=== PATIENT | male | born 1970 | race Caucasian/White ===

== ENCOUNTER 2025-03-07 16:24 | Emergency (ER) | payer BC, SELFPAY ==
--- NOTE | 2025-03-07 08:45 | ECG_ITS ---
Test Date: 2025-03-07 17:04:00 Measurements Intervals [place] Rate: 116 P: 55 IA: 160 QRS: -38 QRSD: 94 T: 68 QT: 324 QTc: 451 Interpretive Statements SINUS TACHYCARDIA LEFT AXIS DEVIATION LEFT ATRIAL ENLARGEMENT CANNOT R/O SEPTAL INFARCT, AGE INDETERMINATE MINIMAL Q WAVES- HIGH LATERAL LEADS ABNORMAL ECG No previous ECG available for comparison Electronically Signed On 03-08-2025 13:46:39 CDT by Franco Ron D.O.
[2025-03-07 16:26] VITALS: BP 214/100; PULSE 116; RESP 18; TEMP 37.3; O2SAT 97
--- NOTE | 2025-03-07 17:21 | ED_ITS ---
HPI - General Adult General Chief complaint: Recheck/Abnormal Lab/Rx Stated complaint: sent from for labs Time Seen by Provider: 03/07/25 17:06 History of Present Illness HPI narrative: This is a 54-year-old male history of hypertension presenting for a rash on his leg. Patient notes the rash 4-5 days ago. It is red painful and warm to touch. It is spreading. He has had subjective fever and chills at home was not take his temperature. Patient's hypertension is not sure if he is taking his blood pressure meds today. Related Data Home Medications ?Medication ?Instructions ?Recorded ?Confirmed ?Last Taken ?Type losartan 50 mg tablet 50 mg PO DAILY 03/07/25 03/07/25 Unknown History Allergies Allergy/AdvReac Type Severity Reaction Status Date / Time No Known Allergies Allergy Unknown Verified 03/07/25 16:29 [facility] Past Medical History Medical History (Updated 03/07/25 @ 17:45 by Israel Callejas MD) HTN (hypertension) Exam Narrative: APPEARANCE: No apparent distress. Head: atraumatic. EYES: EOMI, NOSE: Atraumatic NECK: Trachea midline RESPIRATORY: No increased rate of breathing, clear to auscultation CARDIOVASCULAR: Tachycardic, no peripheral edema ABDOMINAL: Non-distended MUSCULOSKELETAl: No obvious deformities NEURO: Alert. Moving 4/4 extremities SKIN: On the left anterior antonio he has a erythematous rash that is warm to touch, no blisters no crepitus PSYCHIATRIC: Normal affect Course Vital Signs Vital signs: Vital Signs Temperature 99.2 F 03/07/25 16:26 Pulse Rate 116 H 03/07/25 16:26 Respiratory Rate 18 03/07/25 16:26 Blood Pressure 214/100 H 03/07/25 16:26 Pulse Oximetry 97 03/07/25 16:26 Oxygen Delivery Room Air 03/07/25 16:26 Temperature 99.2 F 03/07/25 16:26 Pulse Rate 116 H 03/07/25 16:26 Respiratory Rate 18 03/07/25 16:26 Blood Pressure 214/100 H 03/07/25 16:26 Pulse Oximetry 97 03/07/25 16:26 Oxygen Delivery Room Air 03/07/25 16:26 Medical Decision Making [facility] Narrative Medical decision making narrative: -Course: 54-year-old male presenting with a warm painful rash to his left anterior antonio. Findings consistent with cellulitis. On arrival the patient was hypertensive and tachycardic although he had not taken his hypertension meds. 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 White count elevated at 12.8. Despite the elevated white count source infection the patient is very well appearing overall. We discussed admi ssion versus discharge and both myself and patient are comfortable with him going home on a course of oral antibiotics with strict return precautions. Patient given 2 g of Ancef for his cellulitis. He will be discharged on Keflex. Given return precautions and primary care follow-up. -DDX includes but is not limited to: Cellulitis, heat rash, abrasion Vital Signs Vital Signs: Vital Signs Temperature 99.2 F 03/07/25 16:26 Pulse Rate 116 H 03/07/25 16:26 Respiratory Rate 18 03/07/25 16:26 Blood Pressure 214/100 H 03/07/25 16:26 Pulse Oximetry 97 03/07/25 16:26 Oxygen Delivery Room Air 03/07/25 16:26 Temperature 99.2 F 03/07/25 16:26 Pulse Rate 116 H 03/07/25 16:26 Respiratory Rate 18 03/07/25 16:26 Blood Pressure 214/100 H 03/07/25 16:26 Pulse Oximetry 97 03/07/25 16:26 Oxygen Delivery Room Air 03/07/25 16:26 Discharge Plan Discharge Clinical Impression: Cellulitis Patient Disposition: Home Condition: Stable Instructions: Antibiotic Form, Cellulitis (ED) Additional Instructions: You were seen in the emergency department for rash on your antonio. I believe this is cellulitis. Please complete a course of antibiotics. Follow-up with your primary care physician in 3-5 days to ensure that your rash is improving. If you feel that you are getting worse, the rash continues to spread or you develop fevers higher than 101.4 I would like you to return to the emergency department for re-evaluation. Your blood pressures are elevated in ED. We gave you a dose of your home BP medication, please speak with your primary care physician in regards to your elevated blood pressures. Patient Language: Bhutanese Prescriptions: New cephalexin 500 mg capsule 500 mg PO Q6H 7 Days Qty: 28 0RF No Action losartan 50 mg tablet 50 mg PO DAILY Follow-up/Referrals: Homa Maravilla, RN [Emergency Nurse] - [place],Pierre Weeks MD [Primary Care Provider] - 1 Week (CEllulitis, HTN)
[2025-03-07 17:38] VITALS: BP 193/97; PULSE 99; RESP 18; TEMP 37.3; O2SAT 100
[2025-03-07 17:39] VITALS: O2SAT 100
[2025-03-07 17:46] LABS: Basophils Absolute Auto 0.1 K/mm3 (0.0-0.1); Basophils Percent Auto 0.4 % (0.2-1.2); Eosinophils Absolute Auto 0.1 K/mm3 (0-0.3); Eosinophils Percent Auto 0.4 % (0-4.4); Hematocrit 46.6 % (42.0-52.0); Hemoglobin 15.6 g/dL (14.0-18.0); Immature Granulocyte Absolute 0.05 K/mm3 (0.00-0.031); Immature Granulocyte Percent A 0.4 % (0-0.5); Lymphocytes Absolute Auto 0.99 K/mm3 (0.9-3.2); Lymphocytes Percent Auto 7.7 % (18.3-44.2); Mean Corpuscular HGB Conc 33.5 g/dl (32-36); Mean Corpuscular Hemoglobin 30.1 pg (26-34); Mean Platelet Volume 8.6 fl (7.4-10.4); Monocytes Absolute Auto 1.1 K/mm3 (0.1-0.6); Monocytes Percent Auto 8.2 % (2.6-8.5); Neutrophils Absolute Auto 10.6 K/mm3 (1.3-6.7); Neutrophils Percent Auto 82.9 % (45.5-73.1); Platelet Count Result 254 k/mm3 (150-375); Red Blood Count 5.18 M/mm3 (4.6-6.20); Red Cell Distribution Width 13.1 % (11.5-14.5); White Blood Count 12.8 K/mm3 (4.5-10.0)
[2025-03-07 17:53] LABS: Alanine Aminotransferase 17 U/L (6-50); Albumin Level 4.7 g/dL (3.5-5.1); Alkaline Phosphatase 110 U/L (38-126); Anion Gap 13 mmol/L (4-12); Aspartate Amino Transferase 26 U/L (17-59); Bilirubin,Total 0.5 mg/dL (0.2-1.3); Blood Urea Nitrogen 13 mg/dL (9-20); Calcium 8.9 mg/dL (8.4-10.2); Carbon Dioxide 23 mmol/L (22-30); Chloride 105 mmol/L (98-107); Estimated CRCL calculation 81 ml/min; Estimated Glomerular Filt Rate > 60; Glucose 104 mg/dL (65-110); Potassium 3.6 mmol/L (3.4-5.0); Sodium 141 mmol/L (137-145); Total Protein 8.6 g/dL (6.3-8.2)
[2025-03-07] MEDS: LACTATED RINGERS 2,000 ML 999 ML IV CONT (17:55)
[2025-03-07] MEDS: ceFAZolin 2 GM/D5W 50 ML 2 GM/50 ML BAG IVPB (19:19)
== END 2025-03-07 20:15 | disposition home or self-care (01) ==
PROVIDERS: Emergency Provider Emergency Medicine; PCP Internal Medicine
DX: L03.116 Cellulitis of left lower limb (principal); I10 Essential (primary) hypertension; R00.0 Tachycardia, unspecified; R94.31 Abnormal electrocardiogram [ECG] [EKG]
CPT/HCPCS: 36415; 80053; 85025; 93005; 96361; 96365; 99284; J0690; J7120

== ENCOUNTER 2025-08-10 16:48 | Emergency (ER) | payer BC, SELFPAY ==
[2025-08-10 17:29] VITALS: BP 184/100; PULSE 110; RESP 16; TEMP 36.6; O2SAT 98
[2025-08-10 20:31] VITALS: BP 172/108; PULSE 104; RESP 14; TEMP 36.7; O2SAT 97
--- NOTE | 2025-08-10 21:12 | ED.EXTPRO ---
HPI - Extremity Problem General Chief complaint: Extremity Problem,Nontraumatic Stated complaint: left leg redness Time Seen by Provider: 08/10/25 20:37 Source: patient Mode of arrival: ambulatory Limitations: no limitations History of Present Illness HPI Narrative: This is a 55 year old male that presents to the ER for a rash on the left leg. Noted today. Reports he had a fever earlier. Took an anti-inflammatory at home. Reports history of cellulitis. Related Data Home Medications ?Medication ?Instructions ?Recorded ?Confirmed ?Last Taken ?Type losartan 50 mg tablet 50 mg PO DAILY 03/07/25 03/07/25 Unknown History Allergies Allergy/AdvReac Type Severity Reaction Status Date / Time No Known Allergies Allergy Unknown Verified 08/10/25 17:33 Review of Systems Review of Systems: All systems reviewed & are unremarkable except as noted in HPI and below PMFSH Past Medical History Medical History (Updated 08/10/25 @ 21:14 by Carrie Car PA-C) HTN (hypertension) Exam Narrative: GENERAL: Well-appearing, well-nourished, and in no acute distress. HEAD: Normocephalic, atraumatic. EYES: EOMI. CHEST: No respiratory distress. HEART: Regular rate EXTREMITIES: Normal range of motion. No edema. Patchy areas of redness to the left antonio and left inner thigh SKIN: Warm, dry, no rash. NEURO: No focal deficits. Alert and oriented x3. PSYCH: Normal mood and affect Course Vital Signs Vital signs: Vital Signs Temperature 98 F 08/10/25 17:29 Pulse Rate 110 H 08/10/25 17:29 Respiratory Rate 16 08/10/25 17:29 Blood Pressure 184/100 H 08/10/25 17:29 Pulse Oximetry 98 08/10/25 17:29 Oxygen Delivery Room Air 08/10/25 17:29 Temperature 98.1 F 08/10/25 20:31 Pulse Rate 104 H 08/10/25 20:31 Respiratory Rate 14 08/10/25 20:31 Blood Pressure 172/108 H 08/10/25 20:31 Pulse Oximetry 97 08/10/25 20:31 Oxygen Delivery Room Air 08/10/25 17:29 MDM MDM Narrative Medical decision making narrative: Patient presents the emergency department for a rash to the left lower extremity. He is afebrile and nontoxic appearing. Tachycardic upon arrival, this down trended without intervention. Patchy redness noted to the left lower extremity. Reports history of a similar episode earlier this year for which he was treated with an antibiotic with relief. Will trial a round of Keflex again. I am also going to start him on Valtrex as I do have some suspicion for shingles. He was instructed he should follow up with a water treatment technician Differential Diagnosis Differential Diagnosis: shingles, cellulitis Medical Records I have reviewed the following patient records and this information was taken into consideration when formulating the assessment and plan.: previous labs and previous ER visits Critical Care Time Critical Care Time Critical Care Time: No Discharge Plan Discharge Clinical Impression: Rash and nonspecific skin eruption Patient Disposition: Home Condition: Stable Instructions: Antibiotic Form, Shingles (ED), Cellulitis (ED) Additional Instructions: Return to the emergency department if you experience fever >101, increasing redness and swelling of your leg, weakness, numbness or any other symptoms that are concerning to you Take Cephalexin and Valacyclovir as prescribed Follow-up with primary care doctor. I would also have follow up with a Manager Scheduling Patient Language: Greenlandic Prescriptions: New cephalexin 500 mg capsule 500 mg PO Q6H 7 Days Qty: 28 0RF valacyclovir 1 gram tablet 1,000 mg PO Q8H 7 Days Qty: 21 0RF No Action losartan 50 mg tablet 50 mg PO DAILY cephalexin 500 mg capsule 500 mg PO Q6H 7 Days Qty: 28 0RF Follow-up/Referrals: Gilles,Pierre Weeks MD [Primary Care Provider]
--- OUTSIDE RECORDS SUMMARY | 2025-08-10 21:23 | XMS_ITS | Clinical Summary ---
Author Organization [facility] Address [address] [place] [id number] Care Team Providers Care Senior Windows Engineer Name Role Phone Unknown, Notinfile Primary Care Provider Unavail able Allergies No known active allergies Medications losartan (COZAAR) 50 mg tablet Take 1 tablet (50 mg total) by mouth daily 02/18/2025 Active Active Problems No known active problems Social History Tobacco Use Types Packs/Day Years Used Date Smoking Tobacco: Never Assessed Sex and Gender Information Value Date Recorded Sex Assigned at Not on file Legal Sex Male 1:18 AM [employer] Gender Identity Not on file Sexual Orientation Not on file Last Filed Vital Signs Vital Sign Reading Time Taken Comments Blood Pressure 176/80 03/07/2025 3:47 PM CDT Pulse 97 03/07/2025 3:47 PM CDT Temperature 38.8 C (101.8 F) 03/07/2025 3:47 PM CDT Respiratory Rate 24 03/07/2025 3:47 PM CDT Oxygen Saturation 96% 03/07/2025 3:47 PM CDT Inhaled Oxygen Concentration - - Weight 93 kg (205 lb) 03/07/2025 3:47 PM CDT Height 177.8 cm (5' 10) 03/07/2025 3:47 PM CDT Body Mass Index 29.41 03/07/2025 3:47 PM CDT Plan of Treatment Health Maintenance Due Date Last Done Comments Colon Cancer Screening-Colonoscopy 1970 Depression Screening 1970 Hepatitis C Screening 1970 Prostate Cancer Screening-PSA 1970 DTaP/Tdap/Td Vaccine (1 - Tdap) 1981 Hepatitis B Screening 1988 Regular Well Visit/Exam 18-64 1988 Pneumococcal vaccine <65 (1 of 2 - PCV) 1989 Zoster Vaccine (1 of 2) 1989 Covid-19 Vaccine (4 - 2024-2 6 season) 2025 08/18/2021, 12/30/2020, 12/06/2020 Influenza Vaccine (#1) 2025 , 08/18/2021, 06/24/2020, Additional history exists Insurance [facility] ACCESS CHOICE Care Teams Senior Windows Engineer Relationship Specialty Start Date End Date Unknown, Notinfile PCP - General 03/07/25
== END 2025-08-10 23:23 | disposition home or self-care (01) ==
LOC: ANHED 21:21
PROVIDERS: Emergency Provider Physician Assistant; PCP Internal Medicine
DX: R21 Rash and other nonspecific skin eruption (principal); I10 Essential (primary) hypertension
CPT/HCPCS: 99283